=== PATIENT | female | born 1975 | race Caucasian/White ===

== ENCOUNTER → 2023-05-08 14:13 | Outpatient (REF) | payer OTHER, SELFPAY | LOC: MRI 3T 14:13 | PROVIDERS: ATTENDING PHYSICIAN Orthopaedic Surgery; FAMILY PHYSICIAN Nurse Practitioner Family | DX: M54.50 Low back pain, unspecified (principal); M54.16 Radiculopathy, lumbar region | CPT/HCPCS: 72148 ==

== ENCOUNTER → 2023-07-24 13:22 | Outpatient (REF) | payer OTHER, SELFPAY | LOC: HWWDC 13:22 | PROVIDERS: ATTENDING PHYSICIAN Nurse Practitioner Family | DX: Z12.31 Encounter for screening mammogram for malignant neoplasm of breast (principal) | CPT/HCPCS: 77063; 77067 ==